=== PATIENT | female | born 1975 ===

== ENCOUNTER 2021-01-19 02:39 | Inpatient (IN) | payer MEDICARE, OTHER ==
[~2021-01-19] VITALS: Ht 170.2 cm; Wt 116.3 kg
[2021-01-19 05:13] VITALS: BP 155/80
[2021-01-19] MEDS ORDERED: ACETAMINOPHEN 325 MG TABLET PO SCH (06:00)
[2021-01-19] MEDS ORDERED: MELATONIN 5 MG TABLET PO PRN (06:00)
[2021-01-19] MEDS ORDERED: HYDROmorphone 2 MG/ML, 1ML IVPush PRN (06:00)
[2021-01-19] MEDS ORDERED: POLYETHYLENE GLYCOL 17 GM PACKET PO PRN (06:00)
[2021-01-19] MEDS ORDERED: LABETALOL 5MG/ML, 20ML IVPush PRN (06:00)
[2021-01-19] MEDS ORDERED: LORazepam 2 MG/ML, 1ML IVPush PRN (06:00)
[2021-01-19] MEDS ORDERED: PLEASE ENTER ALLERGIES MC SCH (06:30)
[2021-01-19 06:35] VITALS: BP 142/79
[2021-01-19] MEDS: ACETAMINOPHEN 500 MG TABLET PO SCH ×5 (06:41→22:35)
[2021-01-19 07:05] LABS: ANION GAP 9 mmol/L (5-15); CALCIUM 9.3 mg/dL (8.5-10.1); CHLORIDE 100 mmol/L (98-107); CREATININE 7.21 mg/dL (0.55-1.02)
[2021-01-19 07:11] LABS: BASOPHILS % (AUTO) 1 % (0-1); EOSINOPHILS % (AUTO) 0 % (1-7); LYMPHOCYTES % (AUTO) 6 % (22-44); MEAN CORPUSCULAR HEMOGLOBIN 34.1 pg (27.0-34.8); MEAN CORPUSCULAR HGB CONC 33.9 g/dL (32.4-35.8); MEAN PLATELET VOLUME 8.7 fL (7.4-10.4); MONOCYTES % (AUTO) 4 % (2-9); NEUTROPHILS % (AUTO) 89 % (42-75); PLATELET COUNT 115 x10^3/uL (130-400); RED BLOOD COUNT 2.47 x10^6/uL (3.82-5.3); RED CELL DISTRIBUTION WIDTH 14.8 % (9.6-15.2)
[2021-01-19] MEDS: OXYcodone IR 5MG TABLET PO PRN ×4 (08:02→21:42)
[2021-01-19] MEDS: INSULIN LISPRO 100 UNITS/ML, PEN SQ-INSULIN SCH ×4 (08:57→21:47)
[2021-01-19] MEDS ORDERED: DARBEPOETIN 60 MCG/ML SQ SCH (09:00)
[2021-01-19] MEDS ORDERED: FAMOTIDINE 20 MG/2 ML IVPush SCH (09:00)
[2021-01-19] MEDS: ARANESP 60 MCG/ML **ESRD SQ SCH (10:00)
[2021-01-19] MEDS ORDERED: PROMETHAZINE 25 MG/ML, 1ML ONE (10:54)
[2021-01-19] MEDS ORDERED: MORPHINE SULFATE 4 MG/ML, 1ML ONE (10:55)
[2021-01-19] MEDS: PROMETHAZINE 25 MG/ML, 1ML IM PRN (10:59)
[2021-01-19] MEDS: MORPHINE SULFATE 4 MG/ML, 1ML IVPush PRN ×5 (11:00→22:58)
[2021-01-19 12:45] VITALS: BP 132/77
[2021-01-19] MEDS ORDERED: VIT1TABL59 PO (17:21)
[2021-01-19] MEDS ORDERED: [UNRECOGNIZED DRUG - CODE] SQ (17:21)
[2021-01-19] MEDS ORDERED: PANT40TA6 PO (17:21)
[2021-01-19] MEDS ORDERED: GABA-827 PO (17:21)
[2021-01-19] MEDS ORDERED: FLUO40CA2 PO (17:21)
[2021-01-19] MEDS ORDERED: CALC667T6 PO (17:21)
[2021-01-19] MEDS ORDERED: INSU100I13 SQ (17:21)
[2021-01-19] MEDS ORDERED: LOSA50TA14 PO (17:21)
[2021-01-19] MEDS ORDERED: CHOL10003 PO (17:21)
[2021-01-19] MEDS ORDERED: HYDR1TAB53 PO (17:21)
[2021-01-19] MEDS ORDERED: MIDO2.5T PO (17:21)
[2021-01-19] MEDS: HEPARIN 5,000 UNITS/ML, 1ML SQ SCH (17:30)
[2021-01-19] MEDS ORDERED: MIDODRINE 2.5 MG TABLET PO PRN (19:00)
[2021-01-19 19:38] VITALS: BP 103/67
[2021-01-19] MEDS: PANTOPRAZOLE 40MG TABLET PO SCH (21:40)
[2021-01-19] MEDS: INSULIN GLARGINE 100 UNITS/ML, PEN SQ-INSULIN SCH (22:36)
[2021-01-20] VITALS (9 sets, daily range): BP systolic 94–122; BP diastolic 52–74
[2021-01-20] MEDS: HEPARIN 5,000 UNITS/ML, 1ML SQ SCH ×3 (01:52→17:47)
[2021-01-20] MEDS: OXYcodone IR 5MG TABLET PO PRN ×3 (01:52→11:46)
[2021-01-20] MEDS: ACETAMINOPHEN 500 MG TABLET PO SCH ×3 (02:30→10:08)
[2021-01-20] MEDS: MORPHINE SULFATE 4 MG/ML, 1ML IVPush PRN ×5 (05:38→22:00)
[2021-01-20] MEDS: INSULIN LISPRO 100 UNITS/ML, PEN SQ-INSULIN SCH ×4 (07:00→21:53)
[2021-01-20] MEDS ORDERED: CALCIUM ACETATE 667 MG CAPSULE PO SCH (07:00)
[2021-01-20 07:45] LABS: BASOPHILS % (AUTO) 0 % (0-1); EOSINOPHILS % (AUTO) 4 % (1-7); LYMPHOCYTES % (AUTO) 25 % (22-44); MEAN CORPUSCULAR HEMOGLOBIN 34.4 pg (27.0-34.8); MEAN PLATELET VOLUME 8.5 fL (7.4-10.4); MONOCYTES % (AUTO) 9 % (2-9); NEUTROPHILS % (AUTO) 62 % (42-75); PLATELET COUNT 123 x10^3/uL (130-400); RED BLOOD COUNT 2.13 x10^6/uL (3.82-5.3)
[2021-01-20 07:55] LABS: ANION GAP 9 mmol/L (5-15); CALCIUM 8.1 mg/dL (8.5-10.1); CHLORIDE 98 mmol/L (98-107); CREATININE 8.82 mg/dL (0.55-1.02)
[2021-01-20] MEDS: CHOLECALCIFEROL 1,000 UNIT TABLET PO SCH (07:56)
[2021-01-20] MEDS: GABAPENTIN 400 MG CAPSULE PO SCH (07:56)
[2021-01-20] MEDS: PANTOPRAZOLE 40MG TABLET PO SCH ×2 (07:56→21:48)
[2021-01-20] MEDS: FLUOXETINE HCL 20 MG CAPSULE PO SCH (07:57)
[2021-01-20] MEDS: INSULIN GLARGINE 100 UNITS/ML, PEN SQ-INSULIN SCH ×2 (08:05→21:51)
[2021-01-20] MEDS ORDERED: FAMOTIDINE 20 MG/2 ML IVPush SCH (09:00)
[2021-01-20] MEDS: PROMETHAZINE 25 MG/ML, 1ML IM PRN (10:16)
[2021-01-20] MEDS ORDERED: SODIUM CHLORIDE 0.9% 250 ML IV ONE (11:00)
[2021-01-20] MEDS: HYDROcodone/APAP 10/325 MG TABLET PO PRN (15:09)
[2021-01-21 00:30] VITALS: BP 110/62
[2021-01-21 02:07] VITALS: BP 92/51
[2021-01-21] MEDS: MORPHINE SULFATE 4 MG/ML, 1ML IVPush PRN (05:05)
[2021-01-21 05:55] LABS: BASOPHILS % (AUTO) 0 % (0-1); EOSINOPHILS % (AUTO) 1 % (1-7); LYMPHOCYTES % (AUTO) 12 % (22-44); MEAN CORPUSCULAR HEMOGLOBIN 34.3 pg (27.0-34.8); MEAN CORPUSCULAR HGB CONC 34.7 g/dL (32.4-35.8); MEAN PLATELET VOLUME 8.2 fL (7.4-10.4); MONOCYTES % (AUTO) 7 % (2-9); NEUTROPHILS % (AUTO) 79 % (42-75); PLATELET COUNT 110 x10^3/uL (130-400); RED CELL DISTRIBUTION WIDTH 14.8 % (9.6-15.2)
[2021-01-21 06:09] LABS: CHLORIDE 95 mmol/L (98-107)
[2021-01-21 06:22] LABS: ALANINE AMINOTRANSFERASE 25 U/L (12-78); ALKALINE PHOSPHATASE 101 U/L (45-117); ANION GAP 8 mmol/L (5-15); BILIRUBIN,TOTAL 1.1 mg/dL (0.2-1.0); CALCIUM 8.4 mg/dL (8.5-10.1); CREATININE 6.07 mg/dL (0.55-1.02); TOTAL PROTEIN 6.9 g/dL (6.4-8.2)
[2021-01-21 07:27] VITALS: BP 112/71
[2021-01-21] MEDS: INSULIN LISPRO 100 UNITS/ML, PEN SQ-INSULIN SCH ×4 (07:34→20:31)
[2021-01-21] MEDS ORDERED: LOSARTAN 50MG TABLET PO SCH (09:00)
[2021-01-21] MEDS: FLUOXETINE HCL 20 MG CAPSULE PO SCH (09:50)
[2021-01-21] MEDS: PANTOPRAZOLE 40MG TABLET PO SCH ×2 (09:50→20:31)
[2021-01-21] MEDS: GABAPENTIN 400 MG CAPSULE PO SCH (09:50)
[2021-01-21] MEDS: HYDROcodone/APAP 10/325 MG TABLET PO PRN ×2 (09:51→20:31)
[2021-01-21] MEDS: CHOLECALCIFEROL 1,000 UNIT TABLET PO SCH (09:51)
[2021-01-21] MEDS: INSULIN GLARGINE 100 UNITS/ML, PEN SQ-INSULIN SCH ×2 (09:51→20:30)
[2021-01-21] MEDS ORDERED: FENTANYL PF 250 MCG/5ML ONE (10:14)
[2021-01-21] MEDS ORDERED: MIDAZOLAM 1 MG/ML, 2ML ONE (10:14)
[2021-01-21] MEDS ORDERED: CHLORHEXIDINE 15 ML UDC ONE (11:27)
[2021-01-21] MEDS ORDERED: PROMETHAZINE 25 MG/ML, 1ML IVPush PRN (12:00)
[2021-01-21] MEDS ORDERED: LORazepam 2 MG/ML, 1ML IVPush PRN (12:00)
[2021-01-21] MEDS ORDERED: MEPERIDINE/PF 25MG/0.5ML IVPush PRN (12:00)
[2021-01-21] MEDS ORDERED: FENTANYL PF 100 MCG/2ML IV PRN (12:00)
[2021-01-21] MEDS ORDERED: ALBUTEROL SULFATE 2.5 MG/3 ML NPPB PRN (12:00)
[2021-01-21] MEDS ORDERED: LABETALOL 5MG/ML, 20ML IV PRN (12:00)
[2021-01-21] MEDS ORDERED: CHLORHEXIDINE 15 ML UDC PO ONE (12:00)
[2021-01-21] MEDS ORDERED: HYDROmorphone 1 MG/ML, 1ML INJ IVPush PRN (12:00)
[2021-01-21] MEDS ORDERED: ACETAMINOPHEN 325 MG TABLET PO PRN (12:00)
[2021-01-21] MEDS ORDERED: OXYcodone 5 MG/5 ML ORAL.SOL UDC PO PRN (12:00)
[2021-01-21] MEDS ORDERED: KETAMINE 50 MG/ML, 10ML ONE (12:19)
[2021-01-21] MEDS ORDERED: PROPOFOL 50 ML ONE ×2 (12:59→14:41)
[2021-01-21] MEDS ORDERED: HEPARIN 1,000 UNITS/ML, 30ML ONE (13:01)
[2021-01-21] MEDS ORDERED: TRANEXAMIC ACID 100 MG/ML, 10ML ONE ×2 (13:10→13:11)
[2021-01-21] MEDS ORDERED: VANCOMYCIN 1,000 MG ONE (14:58)
[2021-01-21] MEDS ORDERED: ROCURONIUM 10MG/ML,5ML ONE (15:28)
[2021-01-21] MEDS ORDERED: PROPOFOL 10 MG/ML, 20ML ONE (15:28)
[2021-01-21] MEDS ORDERED: DEXAMETHASONE 4 MG/ML, 1ML ONE (15:28)
[2021-01-21] MEDS ORDERED: NEOSTIGMINE 1 MG/ML, 10ML ONE (15:28)
[2021-01-21] MEDS ORDERED: CEFAZOLIN 1,000 MG ONE (15:28)
[2021-01-21] MEDS ORDERED: ONDANSETRON 2MG/ML, 2ML ONE (15:28)
[2021-01-21] MEDS ORDERED: GLYCOPYRROLATE 0.2MG/1ML, 5ML ONE (15:28)
[2021-01-21] MEDS ORDERED: VANCOMYCIN 1,000 MG in SODIUM CHLORIDE 0.9% 100 ML IV ONE (17:30)
[2021-01-21 19:26] VITALS: BP 132/82
[2021-01-21] MEDS ORDERED: CEFAZOLIN PMX 1GM/50ML 50 ML IVPB ONE (23:00)
[2021-01-22] VITALS (8 sets, daily range): BP systolic 114–164; BP diastolic 46–89
[2021-01-22] MEDS: MORPHINE SULFATE 4 MG/ML, 1ML IVPush PRN ×2 (00:10→10:32)
[2021-01-22] MEDS ORDERED: VANCOMYCIN 1,000 MG in SODIUM CHLORIDE 0.9% 100 ML IV ONE (02:00)
[2021-01-22] MEDS ORDERED: VANCOMYCIN PMX 1GM/200ML 200 ML IVPB ONE (02:00)
[2021-01-22] MEDS: HYDROcodone/APAP 10/325 MG TABLET PO PRN ×3 (04:48→19:38)
[2021-01-22] MEDS: HEPARIN 5,000 UNITS/ML, 1ML SQ SCH ×3 (04:48→21:07)
[2021-01-22 05:46] LABS: BASOPHILS % (AUTO) 0 % (0-1); EOSINOPHILS % (AUTO) 0 % (1-7); LYMPHOCYTES % (AUTO) 6 % (22-44); MEAN CORPUSCULAR HEMOGLOBIN 34.9 pg (27.0-34.8); MEAN CORPUSCULAR HGB CONC 35.3 g/dL (32.4-35.8); MEAN PLATELET VOLUME 8.5 fL (7.4-10.4); MONOCYTES % (AUTO) 7 % (2-9); NEUTROPHILS % (AUTO) 86 % (42-75); PLATELET COUNT 112 x10^3/uL (130-400); RED CELL DISTRIBUTION WIDTH 14.9 % (9.6-15.2)
[2021-01-22 05:56] LABS: ALANINE AMINOTRANSFERASE 26 U/L (12-78); ALBUMIN 2.6 g/dL (3.4-5.0); ANION GAP 11 mmol/L (5-15); CALCIUM 7.3 mg/dL (8.5-10.1); CHLORIDE 95 mmol/L (98-107); CREATININE 8.21 mg/dL (0.55-1.02)
[2021-01-22 05:58] LABS: ALKALINE PHOSPHATASE 89 U/L (45-117); BILIRUBIN,TOTAL 0.6 mg/dL (0.2-1.0); TOTAL PROTEIN 6.3 g/dL (6.4-8.2)
[2021-01-22] MEDS: INSULIN LISPRO 100 UNITS/ML, PEN SQ-INSULIN SCH ×4 (07:45→21:00)
[2021-01-22] MEDS: CHOLECALCIFEROL 1,000 UNIT TABLET PO SCH (07:47)
[2021-01-22] MEDS: INSULIN GLARGINE 100 UNITS/ML, PEN SQ-INSULIN SCH ×2 (07:47→21:18)
[2021-01-22] MEDS: GABAPENTIN 400 MG CAPSULE PO SCH (07:47)
[2021-01-22] MEDS: FLUOXETINE HCL 20 MG CAPSULE PO SCH (07:47)
[2021-01-22] MEDS: PANTOPRAZOLE 40MG TABLET PO SCH ×2 (07:47→21:08)
[2021-01-22] MEDS ORDERED: SODIUM CHLORIDE 0.9% 250 ML IV ONE (11:00)
[2021-01-22] MEDS: CALCIUM ACETATE 667 MG CAPSULE PO SCH ×2 (16:48→21:07)
[2021-01-22] MEDS: ONDANSETRON 2MG/ML, 2ML IVPush PRN (19:38)
[2021-01-23] VITALS (8 sets, daily range): BP systolic 115–168; BP diastolic 57–86
[2021-01-23] MEDS: PROMETHAZINE 25 MG/ML, 1ML IM PRN ×2 (00:35→09:45)
[2021-01-23] MEDS: HYDROcodone/APAP 10/325 MG TABLET PO PRN ×2 (02:55→21:51)
[2021-01-23 04:57] LABS: BASOPHILS % (AUTO) 0 % (0-1); EOSINOPHILS % (AUTO) 2 % (1-7); LYMPHOCYTES % (AUTO) 12 % (22-44); MEAN CORPUSCULAR HEMOGLOBIN 34.3 pg (27.0-34.8); MEAN CORPUSCULAR HGB CONC 35.5 g/dL (32.4-35.8); MEAN PLATELET VOLUME 7.9 fL (7.4-10.4); MONOCYTES % (AUTO) 9 % (2-9); NEUTROPHILS % (AUTO) 78 % (42-75); PLATELET COUNT 97 x10^3/uL (130-400); RED BLOOD COUNT 1.93 x10^6/uL (3.82-5.3); RED CELL DISTRIBUTION WIDTH 15.5 % (9.6-15.2)
[2021-01-23 05:08] LABS: ALBUMIN 2.3 g/dL (3.4-5.0); ANION GAP 11 mmol/L (5-15); CALCIUM 7.4 mg/dL (8.5-10.1); CHLORIDE 93 mmol/L (98-107); CREATININE 9.18 mg/dL (0.55-1.02)
[2021-01-23] MEDS: HEPARIN 5,000 UNITS/ML, 1ML SQ SCH ×3 (05:31→21:33)
[2021-01-23] MEDS: INSULIN LISPRO 100 UNITS/ML, PEN SQ-INSULIN SCH ×4 (07:00→21:00)
[2021-01-23] MEDS: CALCIUM ACETATE 667 MG CAPSULE PO SCH ×3 (09:31→21:33)
[2021-01-23] MEDS: GABAPENTIN 400 MG CAPSULE PO SCH (09:31)
[2021-01-23] MEDS: INSULIN GLARGINE 100 UNITS/ML, PEN SQ-INSULIN SCH ×2 (09:31→21:32)
[2021-01-23] MEDS: PANTOPRAZOLE 40MG TABLET PO SCH ×2 (09:32→21:33)
[2021-01-23] MEDS: CHOLECALCIFEROL 1,000 UNIT TABLET PO SCH (09:32)
[2021-01-23] MEDS: FLUOXETINE HCL 20 MG CAPSULE PO SCH (09:32)
[2021-01-23] MEDS ORDERED: ONDANSETRON ODT 4 MG PO PRN (15:30)
[2021-01-23] MEDS: METOCLOPRAMIDE 5 MG/ML, 2ML IVPush SCH ×2 (16:58→22:54)
[2021-01-24 01:44] VITALS: BP 124/67
[2021-01-24] MEDS: METOCLOPRAMIDE 5 MG/ML, 2ML IVPush SCH ×4 (05:21→23:08)
[2021-01-24] MEDS: HEPARIN 5,000 UNITS/ML, 1ML SQ SCH ×3 (05:22→20:43)
[2021-01-24 05:25] LABS: BASOPHILS % (AUTO) 0 % (0-1); EOSINOPHILS % (AUTO) 3 % (1-7); LYMPHOCYTES % (AUTO) 12 % (22-44); MEAN CORPUSCULAR HEMOGLOBIN 34.8 pg (27.0-34.8); MEAN CORPUSCULAR HGB CONC 35.7 g/dL (32.4-35.8); MEAN PLATELET VOLUME 7.9 fL (7.4-10.4); MONOCYTES % (AUTO) 8 % (2-9); NEUTROPHILS % (AUTO) 76 % (42-75); PLATELET COUNT 101 x10^3/uL (130-400); RED BLOOD COUNT 1.97 x10^6/uL (3.82-5.3); RED CELL DISTRIBUTION WIDTH 15.5 % (9.6-15.2)
[2021-01-24] MEDS: HYDROcodone/APAP 10/325 MG TABLET PO PRN ×3 (05:27→20:43)
[2021-01-24 05:37] LABS: ALBUMIN 2.2 g/dL (3.4-5.0); ANION GAP 12 mmol/L (5-15); CALCIUM 7.6 mg/dL (8.5-10.1); CHLORIDE 93 mmol/L (98-107)
[2021-01-24 05:41] LABS: ALKALINE PHOSPHATASE 76 U/L (45-117); BILIRUBIN,TOTAL 0.7 mg/dL (0.2-1.0)
[2021-01-24 05:43] LABS: ALANINE AMINOTRANSFERASE < 6 U/L (12-78)
[2021-01-24] MEDS: INSULIN LISPRO 100 UNITS/ML, PEN SQ-INSULIN SCH ×4 (06:29→20:44)
[2021-01-24 07:20] VITALS: BP 118/68
[2021-01-24] MEDS: CALCIUM ACETATE 667 MG CAPSULE PO SCH ×3 (09:57→20:43)
[2021-01-24] MEDS: FLUOXETINE HCL 20 MG CAPSULE PO SCH (09:58)
[2021-01-24] MEDS: CHOLECALCIFEROL 1,000 UNIT TABLET PO SCH (09:58)
[2021-01-24] MEDS: GABAPENTIN 400 MG CAPSULE PO SCH (09:58)
[2021-01-24] MEDS: PANTOPRAZOLE 40MG TABLET PO SCH ×2 (09:58→20:43)
[2021-01-24] MEDS: ONDANSETRON 2MG/ML, 2ML IVPush PRN (09:58)
[2021-01-24] MEDS: INSULIN GLARGINE 100 UNITS/ML, PEN SQ-INSULIN SCH ×2 (10:13→20:49)
[2021-01-24] MEDS ORDERED: NALOXONE 1 MG/ML, 2ML ONE (10:59)
[2021-01-24] MEDS ORDERED: MIDAZOLAM 1 MG/ML, 5ML ONE (10:59)
[2021-01-24] MEDS ORDERED: FLUMAZENIL 0.1 MG/1 ML, 5ML ONE (10:59)
[2021-01-24] MEDS ORDERED: FENTANYL PF 100 MCG/2ML ONE (10:59)
[2021-01-24 14:20] VITALS: BP 167/62
[2021-01-24 19:59] VITALS: BP 165/78
[2021-01-24] MEDS ORDERED: OXYcodone IR 5MG TABLET PO PRN (21:30)
[2021-01-25 01:31] VITALS: BP 134/73
[2021-01-25] MEDS: HEPARIN 5,000 UNITS/ML, 1ML SQ SCH ×3 (04:43→21:00)
[2021-01-25] MEDS: METOCLOPRAMIDE 5 MG/ML, 2ML IVPush SCH ×4 (04:43→22:30)
[2021-01-25 05:10] LABS: ALBUMIN 2.4 g/dL (3.4-5.0); ANION GAP 16 mmol/L (5-15); CALCIUM 7.6 mg/dL (8.5-10.1); CHLORIDE 92 mmol/L (98-107)
[2021-01-25 05:11] LABS: BASOPHILS % (AUTO) 0 % (0-1); EOSINOPHILS % (AUTO) 3 % (1-7); LYMPHOCYTES % (AUTO) 9 % (22-44); MEAN CORPUSCULAR HEMOGLOBIN 34.2 pg (27.0-34.8); MEAN CORPUSCULAR HGB CONC 35.1 g/dL (32.4-35.8); MONOCYTES % (AUTO) 8 % (2-9); NEUTROPHILS % (AUTO) 80 % (42-75); PLATELET COUNT 109 x10^3/uL (130-400); RED BLOOD COUNT 1.91 x10^6/uL (3.82-5.3); RED CELL DISTRIBUTION WIDTH 15.6 % (9.6-15.2)
[2021-01-25] MEDS: INSULIN LISPRO 100 UNITS/ML, PEN SQ-INSULIN SCH ×4 (07:00→21:00)
[2021-01-25 08:10] VITALS: BP 170/89
[2021-01-25] MEDS: CHOLECALCIFEROL 1,000 UNIT TABLET PO SCH ×2 (09:00→09:56)
[2021-01-25] MEDS: PANTOPRAZOLE 40MG TABLET PO SCH ×3 (09:00→22:31)
[2021-01-25] MEDS: GABAPENTIN 400 MG CAPSULE PO SCH ×2 (09:00→09:56)
[2021-01-25] MEDS: FLUOXETINE HCL 20 MG CAPSULE PO SCH ×2 (09:00→09:56)
[2021-01-25] MEDS: PROMETHAZINE 25 MG/ML, 1ML IM PRN (09:55)
[2021-01-25] MEDS: CALCIUM ACETATE 667 MG CAPSULE PO SCH ×3 (09:56→22:31)
[2021-01-25] MEDS: INSULIN GLARGINE 100 UNITS/ML, PEN SQ-INSULIN SCH ×2 (10:03→22:30)
[2021-01-25] MEDS ORDERED: CHLORHEXIDINE 15 ML UDC ONE (11:13)
[2021-01-25] MEDS ORDERED: BUPIVACAINE/PF 0.5% ONE (11:28)
[2021-01-25] MEDS ORDERED: HEPARIN 1,000 UNITS/ML, 30ML ONE (11:29)
[2021-01-25] MEDS ORDERED: FENTANYL PF 100 MCG/2ML ONE ×2 (12:00→13:01)
[2021-01-25] MEDS ORDERED: CHLORHEXIDINE 15 ML UDC PO ONE (12:00)
[2021-01-25] MEDS ORDERED: ONDANSETRON 2MG/ML, 2ML IVPush PRN (12:30)
[2021-01-25] MEDS ORDERED: ACETAMINOPHEN 325 MG TABLET PO PRN (12:30)
[2021-01-25] MEDS ORDERED: hydrALAzine 20 MG/ML, 1ML IV PRN (12:30)
[2021-01-25] MEDS ORDERED: LABETALOL 5MG/ML, 20ML IV PRN (12:30)
[2021-01-25] MEDS ORDERED: PROMETHAZINE 25 MG/ML, 1ML IVPush PRN (12:30)
[2021-01-25] MEDS ORDERED: HYDROmorphone 1 MG/ML, 1ML INJ IVPush PRN (12:30)
[2021-01-25] MEDS ORDERED: PROMETHAZINE 25 MG SUPP PR PRN (12:30)
[2021-01-25] MEDS ORDERED: PROPOFOL 10 MG/ML, 20ML ONE (12:36)
[2021-01-25] MEDS ORDERED: CEFAZOLIN 1,000 MG ONE (12:36)
[2021-01-25] MEDS ORDERED: ONDANSETRON 2MG/ML, 2ML ONE ×2 (12:36→13:14)
[2021-01-25] MEDS ORDERED: DEXAMETHASONE 4 MG/ML, 1ML ONE (12:36)
[2021-01-25] MEDS: FENTANYL PF 100 MCG/2ML IV PRN ×2 (13:05→13:21)
[2021-01-25] MEDS ORDERED: OXYcodone 5 MG/5 ML ORAL.SOL UDC ONE (13:25)
[2021-01-25] MEDS: OXYcodone 5 MG/5 ML ORAL.SOL UDC PO PRN ×2 (13:26→14:26)
[2021-01-25] MEDS: ONDANSETRON 2MG/ML, 2ML IVPush PRN (14:18)
[2021-01-25] MEDS: MORPHINE SULFATE 4 MG/ML, 1ML IVPush PRN (14:18)
[2021-01-25] MEDS: OXYcodone IR 5MG TABLET PO PRN ×2 (18:29→22:31)
[2021-01-25 22:00] VITALS: BP 137/65
[2021-01-25 22:26] VITALS: BP 140/69
[2021-01-25] MEDS: POLYETHYLENE GLYCOL 17 GM PACKET PO SCH (22:31)
[2021-01-26 01:09] VITALS: BP 123/61
[2021-01-26] MEDS: HEPARIN 5,000 UNITS/ML, 1ML SQ SCH ×3 (05:00→21:12)
[2021-01-26] MEDS: METOCLOPRAMIDE 5 MG/ML, 2ML IVPush SCH ×4 (05:14→23:02)
[2021-01-26] MEDS: OXYcodone IR 5MG TABLET PO PRN ×4 (05:14→21:12)
[2021-01-26] MEDS: INSULIN LISPRO 100 UNITS/ML, PEN SQ-INSULIN SCH ×4 (06:42→21:13)
[2021-01-26 07:27] VITALS: BP 138/65
[2021-01-26 07:32] LABS: BASOPHILS % (AUTO) 0 % (0-1); EOSINOPHILS % (AUTO) 3 % (1-7); LYMPHOCYTES % (AUTO) 9 % (22-44); MEAN CORPUSCULAR HEMOGLOBIN 33.5 pg (27.0-34.8); MEAN CORPUSCULAR HGB CONC 35.1 g/dL (32.4-35.8); MEAN PLATELET VOLUME 7.8 fL (7.4-10.4); MONOCYTES % (AUTO) 11 % (2-9); NEUTROPHILS % (AUTO) 76 % (42-75); PLATELET COUNT 107 x10^3/uL (130-400); RED CELL DISTRIBUTION WIDTH 15.4 % (9.6-15.2)
[2021-01-26 07:38] LABS: CHLORIDE 95 mmol/L (98-107)
[2021-01-26 07:46] LABS: ALBUMIN 2.4 g/dL (3.4-5.0); ANION GAP 14 mmol/L (5-15); CALCIUM 8.3 mg/dL (8.5-10.1); CREATININE 8.03 mg/dL (0.55-1.02)
[2021-01-26] MEDS: POLYETHYLENE GLYCOL 17 GM PACKET PO SCH ×2 (08:19→21:12)
[2021-01-26] MEDS: MAGNESIUM HYDROXIDE 8%, 30ML UDC PO PRN (08:20)
[2021-01-26] MEDS: FLUOXETINE HCL 20 MG CAPSULE PO SCH (08:20)
[2021-01-26] MEDS: GABAPENTIN 400 MG CAPSULE PO SCH (08:20)
[2021-01-26] MEDS: INSULIN GLARGINE 100 UNITS/ML, PEN SQ-INSULIN SCH ×2 (08:20→21:13)
[2021-01-26] MEDS: CHOLECALCIFEROL 1,000 UNIT TABLET PO SCH (08:20)
[2021-01-26] MEDS: PANTOPRAZOLE 40MG TABLET PO SCH ×2 (08:20→21:12)
[2021-01-26] MEDS: CALCIUM ACETATE 667 MG CAPSULE PO SCH ×3 (08:20→21:12)
[2021-01-26] MEDS: ARANESP 60 MCG/ML **ESRD SQ SCH (09:43)
[2021-01-26 13:11] VITALS: BP 164/72
[2021-01-26 20:09] VITALS: BP 129/72
[2021-01-27 00:45] VITALS: BP 138/65
[2021-01-27] MEDS: METOCLOPRAMIDE 5 MG/ML, 2ML IVPush SCH ×4 (05:22→23:00)
[2021-01-27] MEDS: HEPARIN 5,000 UNITS/ML, 1ML SQ SCH ×3 (05:22→21:37)
[2021-01-27 05:33] LABS: BASOPHILS % (AUTO) 0 % (0-1); EOSINOPHILS % (AUTO) 5 % (1-7); LYMPHOCYTES % (AUTO) 13 % (22-44); MEAN CORPUSCULAR HEMOGLOBIN 33.3 pg (27.0-34.8); MEAN CORPUSCULAR HGB CONC 34.5 g/dL (32.4-35.8); MONOCYTES % (AUTO) 9 % (2-9); NEUTROPHILS % (AUTO) 72 % (42-75); PLATELET COUNT 103 x10^3/uL (130-400); RED BLOOD COUNT 2.57 x10^6/uL (3.82-5.3); RED CELL DISTRIBUTION WIDTH 15.4 % (9.6-15.2)
[2021-01-27 05:36] LABS: ALBUMIN 2.1 g/dL (3.4-5.0); ANION GAP 7 mmol/L (5-15); CALCIUM 8.4 mg/dL (8.5-10.1); CHLORIDE 95 mmol/L (98-107)
[2021-01-27 05:37] LABS: CREATININE 8.85 mg/dL (0.55-1.02)
[2021-01-27 07:16] VITALS: BP 100/67
[2021-01-27] MEDS: POLYETHYLENE GLYCOL 17 GM PACKET PO SCH ×2 (09:00→21:37)
[2021-01-27] MEDS: GABAPENTIN 400 MG CAPSULE PO SCH (09:00)
[2021-01-27] MEDS: INSULIN GLARGINE 100 UNITS/ML, PEN SQ-INSULIN SCH ×2 (09:19→21:38)
[2021-01-27] MEDS: INSULIN LISPRO 100 UNITS/ML, PEN SQ-INSULIN SCH ×4 (09:20→21:00)
[2021-01-27] MEDS: CHOLECALCIFEROL 1,000 UNIT TABLET PO SCH (09:22)
[2021-01-27] MEDS: PANTOPRAZOLE 40MG TABLET PO SCH ×2 (09:22→21:37)
[2021-01-27] MEDS: FLUOXETINE HCL 20 MG CAPSULE PO SCH (09:23)
[2021-01-27] MEDS: CALCIUM ACETATE 667 MG CAPSULE PO SCH ×3 (09:23→21:37)
[2021-01-27 14:32] VITALS: BP 109/73
[2021-01-27] MEDS: OXYcodone IR 5MG TABLET PO PRN (15:19)
[2021-01-27 19:52] VITALS: BP 107/65
[2021-01-27] MEDS: MAGNESIUM HYDROXIDE 8%, 30ML UDC PO PRN (21:37)
[2021-01-28 01:29] VITALS: BP 102/56
[2021-01-28] MEDS: METOCLOPRAMIDE 5 MG/ML, 2ML IVPush SCH ×4 (05:30→23:04)
[2021-01-28] MEDS: HEPARIN 5,000 UNITS/ML, 1ML SQ SCH ×3 (05:31→23:03)
[2021-01-28 06:02] LABS: BASOPHILS % (AUTO) 0 % (0-1); EOSINOPHILS % (AUTO) 5 % (1-7); LYMPHOCYTES % (AUTO) 16 % (22-44); MONOCYTES % (AUTO) 9 % (2-9); NEUTROPHILS % (AUTO) 71 % (42-75); PLATELET COUNT 111 x10^3/uL (130-400); RED BLOOD COUNT 2.55 x10^6/uL (3.82-5.3); RED CELL DISTRIBUTION WIDTH 15.1 % (9.6-15.2)
[2021-01-28 06:24] LABS: ALBUMIN 2.1 g/dL (3.4-5.0); ANION GAP 6 mmol/L (5-15); CALCIUM 8.5 mg/dL (8.5-10.1); CHLORIDE 98 mmol/L (98-107)
[2021-01-28 06:25] LABS: CREATININE 6.09 mg/dL (0.55-1.02)
[2021-01-28 06:31] VITALS: BP 115/55
[2021-01-28] MEDS: INSULIN LISPRO 100 UNITS/ML, PEN SQ-INSULIN SCH ×4 (07:00→23:10)
[2021-01-28] MEDS: GABAPENTIN 400 MG CAPSULE PO SCH (08:37)
[2021-01-28] MEDS: OXYcodone IR 5MG TABLET PO PRN ×3 (08:37→18:01)
[2021-01-28] MEDS: CALCIUM ACETATE 667 MG CAPSULE PO SCH ×3 (08:37→23:04)
[2021-01-28] MEDS: FLUOXETINE HCL 20 MG CAPSULE PO SCH (08:37)
[2021-01-28] MEDS: INSULIN GLARGINE 100 UNITS/ML, PEN SQ-INSULIN SCH ×2 (08:38→23:05)
[2021-01-28] MEDS: CHOLECALCIFEROL 1,000 UNIT TABLET PO SCH (08:38)
[2021-01-28] MEDS: PANTOPRAZOLE 40MG TABLET PO SCH ×2 (08:38→23:03)
[2021-01-28] MEDS: POLYETHYLENE GLYCOL 17 GM PACKET PO SCH ×2 (08:38→23:03)
[2021-01-28 12:51] VITALS: BP 101/60
[2021-01-28] MEDS ORDERED: MORPHINE SULFATE 4 MG/ML, 1ML IVPush PRN (14:30)
[2021-01-28 22:06] VITALS: BP 129/75
[2021-01-29 02:44] VITALS: BP 136/77
[2021-01-29] MEDS: MAGNESIUM HYDROXIDE 8%, 30ML UDC PO PRN (06:11)
[2021-01-29] MEDS: METOCLOPRAMIDE 5 MG/ML, 2ML IVPush SCH ×2 (06:11→10:37)
[2021-01-29] MEDS: HEPARIN 5,000 UNITS/ML, 1ML SQ SCH ×3 (06:11→22:58)
[2021-01-29 06:12] LABS: ALBUMIN 2.1 g/dL (3.4-5.0); ANION GAP 6 mmol/L (5-15); CALCIUM 8.9 mg/dL (8.5-10.1); CHLORIDE 96 mmol/L (98-107)
[2021-01-29 06:13] LABS: CREATININE 7.05 mg/dL (0.55-1.02)
[2021-01-29] MEDS: INSULIN LISPRO 100 UNITS/ML, PEN SQ-INSULIN SCH ×4 (07:53→20:59)
[2021-01-29] MEDS: CHOLECALCIFEROL 1,000 UNIT TABLET PO SCH (07:53)
[2021-01-29] MEDS: FLUOXETINE HCL 20 MG CAPSULE PO SCH (07:53)
[2021-01-29] MEDS: INSULIN GLARGINE 100 UNITS/ML, PEN SQ-INSULIN SCH ×2 (07:53→20:58)
[2021-01-29 07:54] LABS: MEAN CORPUSCULAR HGB CONC 33.9 g/dL (32.4-35.8); PLATELET COUNT 116 x10^3/uL (130-400); RED BLOOD COUNT 2.56 x10^6/uL (3.82-5.3); RED CELL DISTRIBUTION WIDTH 14.6 % (9.6-15.2)
[2021-01-29] MEDS: CALCIUM ACETATE 667 MG CAPSULE PO SCH ×3 (07:54→20:16)
[2021-01-29] MEDS: GABAPENTIN 400 MG CAPSULE PO SCH (07:54)
[2021-01-29] MEDS: POLYETHYLENE GLYCOL 17 GM PACKET PO SCH ×2 (07:54→20:17)
[2021-01-29] MEDS: PANTOPRAZOLE 40MG TABLET PO SCH ×2 (07:54→20:13)
[2021-01-29 07:59] VITALS: BP 122/74
[2021-01-29 08:38] LABS: EOS#(MANUAL) 0.22 x10^3/uL (0.0-0.4); EOS% (MANUAL) 3 % (1-7); LYMPH#(MANUAL) 0.66 x10^3/uL (1-3.4); LYMPHS% (MANUAL) 9 % (22-44); METAMYELOCYTES# (MANUAL) 0.07 x10^3/uL (0-0); METAMYELOCYTES% (MANUAL) 1 % (0-1); MONOS#(MANUAL) 0.07 x10^3/uL (0.3-2.7); MONOS% (MANUAL) 1 % (2-9); POLYCHROMASIA 1+; SEG#(MANUAL) 6.28 x10^3/uL (1.8-6.8); SEGS% (MANUAL) 86 % (42-75)
[2021-01-29 08:39] LABS: <PLATELET ESTIMATE> DECREASED; <PLT MORPHOLOGY> NORMAL PLT MORPH
[2021-01-29] MEDS ORDERED: BISACODYL 10 MG SUPP PR PRN (09:30)
[2021-01-29] MEDS: METOCLOPRAMIDE 10MG TABLET PO SCH ×3 (12:00→20:14)
[2021-01-29] MEDS: SENNOSIDES 8.6 MG TABLET PO SCH ×2 (12:00→20:17)
[2021-01-29 13:04] VITALS: BP 133/78
[2021-01-29 13:06] LABS: OCCULT BLOOD NEGATIVE (NEGATIVE)
[2021-01-29 19:07] VITALS: BP 118/73
[2021-01-29] MEDS: OXYcodone IR 5MG TABLET PO PRN (20:14)
[2021-01-30 02:03] VITALS: BP 101/55
[2021-01-30] MEDS: OXYcodone IR 5MG TABLET PO PRN ×2 (06:21→17:17)
[2021-01-30] MEDS: METOCLOPRAMIDE 10MG TABLET PO SCH ×3 (06:21→16:00)
[2021-01-30] MEDS: HEPARIN 5,000 UNITS/ML, 1ML SQ SCH ×2 (06:22→15:00)
[2021-01-30] MEDS: INSULIN LISPRO 100 UNITS/ML, PEN SQ-INSULIN SCH ×3 (07:23→17:16)
[2021-01-30 07:25] VITALS: BP 98/60
[2021-01-30] MEDS: INSULIN GLARGINE 100 UNITS/ML, PEN SQ-INSULIN SCH (07:57)
[2021-01-30] MEDS: CHOLECALCIFEROL 1,000 UNIT TABLET PO SCH (07:57)
[2021-01-30] MEDS: GABAPENTIN 400 MG CAPSULE PO SCH (07:57)
[2021-01-30] MEDS: POLYETHYLENE GLYCOL 17 GM PACKET PO SCH (07:57)
[2021-01-30] MEDS: FLUOXETINE HCL 20 MG CAPSULE PO SCH (07:58)
[2021-01-30] MEDS: CALCIUM ACETATE 667 MG CAPSULE PO SCH ×2 (07:58→16:00)
[2021-01-30] MEDS: PANTOPRAZOLE 40MG TABLET PO SCH (07:58)
[2021-01-30] MEDS: SENNOSIDES 8.6 MG TABLET PO SCH (07:58)
[2021-01-30 12:50] VITALS: BP 142/65
[2021-01-30] MEDS ORDERED: OXYC5TAB98 PO (14:08)
[2021-01-30] MEDS ORDERED: SENN-99 PO (14:08)
[2021-01-30] MEDS ORDERED: POLY17PO5 PO (14:08)
[2021-01-30] MEDS ORDERED: INSU100I13 SQ-INSULIN (14:33)
[2021-01-30] MEDS ORDERED: APIX5TAB4 PO (15:56)
== END 2021-01-30 17:37 | disposition home health service (06) | DRG 463 ==
LOC: 4NE 04:53
PROVIDERS: ADMIT Internal Medicine; ATTEND Internal Medicine
PROC: 30233N1 Transfusion of Nonautologous Red Blood Cells into Peripheral Vein, Percutaneous Approach (ICD-10-PCS; 2021-01-20)
PROC: 0SPB0JZ Removal of Synthetic Substitute from Left Hip Joint, Open Approach (ICD-10-PCS; 2021-01-21)
PROC: 0QS904Z Reposition Left Femoral Shaft with Internal Fixation Device, Open Approach (ICD-10-PCS; principal; 2021-01-21 14:00)
PROC: 03CC0ZZ Extirpation of Matter from Left Radial Artery, Open Approach (ICD-10-PCS; 2021-01-25)
PROC: 03WY0JZ Revision of Synthetic Substitute in Upper Artery, Open Approach (ICD-10-PCS; 2021-01-25)
PROC: 5A1D70Z Performance of Urinary Filtration, Intermittent, Less than 6 Hours Per Day (ICD-10-PCS; 2021-01-30)
DX: S72.22XA Displaced subtrochanteric fracture of left femur, initial encounter for closed fracture (principal); N18.6 End stage renal disease; T82.868A Thrombosis due to vascular prosthetic devices, implants and grafts, initial encounter; E87.1 Hypo-osmolality and hyponatremia; I13.2 Hypertensive heart and chronic kidney disease with heart failure and with stage 5 chronic kidney disease, or end stage renal disease; I50.32 Chronic diastolic (congestive) heart failure; M97.02XA Periprosthetic fracture around internal prosthetic left hip joint, initial encounter; E44.0 Moderate protein-calorie malnutrition; Z68.41 Body mass index [BMI] 40.0-44.9, adult; E11.22 Type 2 diabetes mellitus with diabetic chronic kidney disease; E11.65 Type 2 diabetes mellitus with hyperglycemia; Z99.2 Dependence on renal dialysis; D53.9 Nutritional anemia, unspecified; D63.1 Anemia in chronic kidney disease; D69.6 Thrombocytopenia, unspecified; D75.89 Other specified diseases of blood and blood-forming organs; E11.43 Type 2 diabetes mellitus with diabetic autonomic (poly)neuropathy; E11.42 Type 2 diabetes mellitus with diabetic polyneuropathy; G89.29 Other chronic pain; H54.7 Unspecified visual loss; Z79.899 Other long term (current) drug therapy; I25.10 Atherosclerotic heart disease of native coronary artery without angina pectoris; I95.3 Hypotension of hemodialysis; K31.84 Gastroparesis; E66.01 Morbid (severe) obesity due to excess calories; I95.1 Orthostatic hypotension; K59.00 Constipation, unspecified; M89.8X9 Other specified disorders of bone, unspecified site; W18.39XA Other fall on same level, initial encounter; Y93.89 Activity, other specified; Y92.89 Other specified places as the place of occurrence of the external cause; Y99.8 Other external cause status; Z79.4 Long term (current) use of insulin; Z79.891 Long term (current) use of opiate analgesic; Z86.14 Personal history of Methicillin resistant Staphylococcus aureus infection; Z68.38 Body mass index [BMI] 38.0-38.9, adult; Z88.8 Allergy status to other drugs, medicaments and biological substances
CPT/HCPCS: 36415; 71045; 74018; 76000; 80048; 80053; 80069; 82272; 82306; 82607; 82728; 82962; 83036; 83540; 83550; 83735; 83970; 84100; 84443; 84703; 85014; 85018; 85025; 86850; 86900; 86923; 87340; 87635; 90935; 93005; 93306; C1713; G0378; J0690; J0882; J1100; J1170; J1644; J2250; J2405; J2550; J2704; J2710; J3010; J3370; C1757; J1815; J2060; J2270; J2310; J2765; P9016; Q0181